=== PATIENT | male | born 1985 | race African-American/Black ===

== ENCOUNTER 2020-03-20 15:25 | Emergency (ER) | payer OTHER ==
[~2020-03-20] VITALS: Ht 182.9 cm; Wt 83.9 kg
[2020-03-20] MEDS ORDERED: KEFLEX500 M1 PO ×2 (16:16→16:47)
[2020-03-20] MEDS ORDERED: NORCO 5-325 TA1 EAC2 PO ×2 (16:16→16:47)
[2020-03-20 16:56] VITALS: BP 155/67
== END 2020-03-20 16:57 | disposition home or self-care (01) ==
LOC: M.ERS 15:25
DX: S62.522B Displaced fracture of distal phalanx of left thumb, initial encounter for open fracture (principal); W31.2XXA Contact with powered woodworking and forming machines, initial encounter; Y93.89 Activity, other specified; Y92.69 Other specified industrial and construction area as the place of occurrence of the external cause; Y99.9 Unspecified external cause status